=== PATIENT | female | born 1955 | race Caucasian/White ===

== ENCOUNTER 2017-09-30 19:55 | Inpatient (IN) ==
[2017-09-30] MEDS ORDERED: methylPREDNISolone 125 MG/2 ML VIAL IVP ONE (19:56)
[2017-09-30] MEDS ORDERED: Ipratropium/Albuterol Neb 3 ML IH ONE (19:56)
[2017-09-30] MEDS ORDERED: Levofloxacin 750 MG/150 ML 750 MG/150 ML BAG IVPB ONE (19:57)
[2017-09-30] MEDS ORDERED: Ipratropium/Albuterol Neb 3 ML ONE (19:58)
--- NOTE | 2017-09-30 20:01 | Emergency Department Note ---
Disposition Clinical Impression: COPD (chronic obstructive pulmonary disease) with acute bronchitis Disposition: Admitted As Inpatient Condition: Fair General Adult HPI - General Stated complaint: SOB Time Seen by Provider: 09/30/17 19:55 Nursing Notes Reviewed: Yes Vital Signs Reviewed: Yes - History of Present Illness HPI Narrative: 62-year-old female presents emergency department with concern for shortness of breath. Patient has past medical history of COPD. She reports that she has had a cold over the last week consisting of upper respiratory symptoms. Patient was going to visit her primary care provider, but was dealing with her who was in the hospital. Patient stating that she is having difficulty breathing. Is not reporting any pain anywhere. - Related Data Home Medications Medication Instructions Recorded Confirmed Albuterol Neb [Proventil Neb] 2.5 mg IH DAILY PRN 09/30/17 09/30/17 Albuterol Sulfate [Ventolin Hfa] 1 puff IH DAILY PRN 09/30/17 09/30/17 Atenolol 100 mg PO DAILY 09/30/17 09/30/17 Montelukast [Singulair] 10 mg PO DAILY 09/30/17 09/30/17 Symbicort 2 puff IH BID 09/30/17 09/30/17 Allergies Allergy/AdvReac Type Severity Reaction Status Date / Time No Known Allergies Allergy Verified 09/30/17 20:07 All systems ED: reviewed and negative except as stated. Review of Systems: As Per HPI Constitutional: Denies: fever Cardiovascular: Denies: chest pain Respiratory: Reports: dyspnea. Denies: cough Gastrointestinal: Denies: abdominal pain, nausea, vomiting Physical Exam - Head Head exam: normocephalic - Eye Eye exam: Present: EOMI - ENT ENT exam: normal oropharynx - Neck Neck exam: Present: trachea midline - Chest Chest inspection: Present: symmetric chest wall rise - Respiratory Respiratory exam: Present: respiratory distress, wheezes, accessory muscle use, other (Decreased aeration throughout) - Cardiovascular Cardiovascular exam: Present: normal rhythm, tachycardia, normal heart sounds - Abdominal Exam Abdominal exam: Present: soft, Non-Tender. Absent: distention - Extremities Exam Extremities exam: Present: normal capillary refill - Back Exam Back exam: Present: full ROM - Neurological Exam Neurological exam: Present: alert, oriented X3 - Psychiatric Psychiatric exam: Present: anxious - Skin Skin exam: Present: warm, dry, intact. Absent: rash Course Vital Signs Temperature 0 F L 09/30/17 20:02 Pulse Rate 105 09/30/17 20:02 Respiratory Rate 24 09/30/17 20:02 Blood Pressure 200/120 09/30/17 20:02 O2 Sat by Pulse Oximetry 99 09/30/17 20:02 Temperature 0 F L 09/30/17 20:02 Pulse Rate 120 09/30/17 20:19 Respiratory Rate 40 09/30/17 20:19 Blood Pressure 155/90 09/30/17 20:19 O2 Sat by Pulse Oximetry 98 09/30/17 20:19 Oxygen Delivery Oxygen Delivery Bipap Medical Decision Making - MDM Narrative Medical decision making narrative: 62-year-old female presented to emergency department with concern for shortness of breath with known history of COPD. Patient arrived to the emergency department hypoxic, tachypnea, tachycardic, with decreased lung sounds throughout with his returning for wheezes. She appeared to be in moderate respiratory distress. 3 DuoNeb's were mainly initiating, patient was placed on BiPAP, on BiPAP, patient appeared to become a little more comfortable. Patient also given 125 mg Solu-Medrol. She will get a dose of Levaquin here. EKG does not reveal any ischemic ST changes. Patient has mild leukocytosis of 14.9. Chest x-ray does not reveal any evidence of pneumonia or any other acute cardiopulmonary disease. Troponin is within normal limits. BNP 77, do not appreciate any rales or pitting edema to suggest CHF. The initial VBG revealed a pH of 7.32 with a PCO2 of 60 may reveal mild signs of respiratory acidosis. Clinically, patient does not need a repeat as she appears much improved after menstruation BiPAP. Patient had d-dimer of 533. This is below age-adjusted level which was likely rules out pulmonary embolus. Prior to admission, the patient is alert and oriented, appears to be breathing more comfortably on the BiPAP. I spoke to the admitting hospitalist agreed to accept this patient for COPD exacerbation. Vital Signs Temperature 0 F L 09/30/17 20:02 Pulse Rate 105 09/30/17 20:02 Respiratory Rate 24 09/30/17 20:02 Blood Pressure 200/120 09/30/17 20:02 O2 Sat by Pulse Oximetry 99 09/30/17 20:02 Temperature 0 F L 09/30/17 20:02 Pulse Rate 120 09/30/17 20:19 Respiratory Rate 40 09/30/17 20:19 Blood Pressure 155/90 09/30/17 20:19 O2 Sat by Pulse Oximetry 98 09/30/17 20:19 Oxygen Delivery Oxygen Delivery Bipap Chest X-Ray 09/30/17 19:56 IMPRESSION: No acute cardiopulmonary disease. D/ / Jordy Salinas MD / Jordy Salinas MD Interpreting Provider: Jordy Salinas MD - Lab Data Result diagrams: 09/30/17 19:59 09/30/17 21:07 Lab Results 09/30/17 09/30/17 09/30/17 Range/Units 19:55 19:59 19:59 WBC 14.9 H (4.3-11.1) K/mcL RBC 5.32 H (3.82-4.97) M/mcL Hgb 14.8 (11.5-15.4) g/dL Hct 47.6 H (35.3-44.9) % MCV 89.5 (83.0-100.0) fL MCH 27.8 L (28.0-33.3) pg MCHC 31.1 L (31.6-35.5) g/dL RDW 14.9 H (11.5-14.5) % Plt Count 234 (140-400) K/mcL MPV 11.1 (9.4-12.4) fL Immature Gran % 0.7 (0-4) % Seg Neutrophils % 77.3 % Lymphocytes % 11.2 % Monocytes % 9.8 % Eosinophils % 0.5 % Basophils % 0.5 % Neutrophils # 11.5 H (1.6-8.9) K/mcL Lymphocytes # 1.7 (0.6-4.6) K/mcL Monocytes # 1.5 H (0.0-1.3) K/mcL Eosinophils # 0.1 (0.0-0.6) K/mcL Basophils # 0.1 (0.0-0.2) K/mcL D-Dimer (0-500) ng/mLFEU VBG pH (7.32-7.42) pH Units VBG pCO2 (41-51) mmHg VBG pO2 (25-50) mmHg VBG HCO3 (21-27) mEq/L Sodium (136-145) mEq/L Potassium (3.5-5.1) mEq/L Chloride (98-107) mEq/L Carbon Dioxide (23-29) mEq/L BUN (8-23) mg/dL Creatinine (0.60-1.20) mg/dL Est GFR ( Amer) (> 60) Est GFR (Non-Af Amer) (> 60) BUN/Creatinine Ratio (6-26) Glucose (70-105) mg/dL Calculated Osmolality (280-300) Lactic Acid (0.5-2.2) mmol/L Calcium (8.6-10.3) mg/dL Troponin I (< 0.04) ng/mL B-Natriuretic Peptide 77 (Less than 100) pg/mL Specimen Rejected Hemolyzed 09/30/17 09/30/17 09/30/17 Range/Units 19:59 20:22 20:25 WBC (4.3-11.1) K/mcL RBC (3.82-4.97) M/mcL Hgb (11.5-15.4) g/dL Hct (35.3-44.9) % MCV (83.0-100.0) fL MCH (28.0-33.3) pg MCHC (31.6-35.5) g/dL RDW (11.5-14.5) % Plt Count (140-400) K/mcL MPV (9.4-12.4) fL Immature Gran % (0-4) % Seg Neutrophils % % Lymphocytes % % Monocytes % % Eosinophils % % Basophils % % Neutrophils # (1.6-8.9) K/mcL Lymphocytes # (0.6-4.6) K/mcL Monocytes # (0.0-1.3) K/mcL Eosinophils # (0.0-0.6) K/mcL Basophils # (0.0-0.2) K/mcL D-Dimer 531 H (0-500) ng/mLFEU VBG pH 7.32 (7.32-7.42) pH Units VBG pCO2 62 H (41-51) mmHg VBG pO2 100 H (25-50) mmHg VBG HCO3 32 H (21-27) mEq/L Sodium (136-145) mEq/L Potassium (3.5-5.1) mEq/L Chloride (98-107) mEq/L Carbon Dioxide (23-29) mEq/L BUN (8-23) mg/dL Creatinine (0.60-1.20) mg/dL Est GFR ( Amer) (> 60) Est GFR (Non-Af Amer) (> 60) BUN/Creatinine Ratio (6-26) Glucose (70-105) mg/dL Calculated Osmolality (280-300) Lactic Acid 1.3 (0.5-2.2) mmol/L Calcium (8.6-10.3) mg/dL Troponin I (< 0.04) ng/mL B-Natriuretic Peptide (Less than 100) pg/mL Specimen Rejected 09/30/17 09/30/17 Range/Units 20:52 21:07 WBC (4.3-11.1) K/mcL RBC (3.82-4.97) M/mcL Hgb (11.5-15.4) g/dL Hct (35.3-44.9) % MCV (83.0-100.0) fL MCH (28.0-33.3) pg MCHC (31.6-35.5) g/dL RDW (11.5-14.5) % Plt Count (140-400) K/mcL MPV (9.4-12.4) fL Immature Gran % (0-4) % Seg Neutrophils % % Lymphocytes % % Monocytes % % Eosinophils % % Basophils % % Neutrophils # (1.6-8.9) K/mcL Lymphocytes # (0.6-4.6) K/mcL Monocytes # (0.0-1.3) K/mcL Eosinophils # (0.0-0.6) K/mcL Basophils # (0.0-0.2) K/mcL D-Dimer (0-500) ng/mLFEU VBG pH (7.32-7.42) pH Units VBG pCO2 (41-51) mmHg VBG pO2 (25-50) mmHg VBG HCO3 (21-27) mEq/L Sodium 133 L (136-145) mEq/L Potassium 3.9 (3.5-5.1) mEq/L Chloride 102 (98-107) mEq/L Carbon Dioxide 27 (23-29) mEq/L BUN 11 (8-23) mg/dL Creatinine 0.82 (0.60-1.20) mg/dL Est GFR ( Amer) > 60 (> 60) Est GFR (Non-Af Amer) > 60 (> 60) BUN/Creatinine Ratio 13 (6-26) Glucose 165 H (70-105) mg/dL Calculated Osmolality 279 L (280-300) Lactic Acid (0.5-2.2) mmol/L Calcium 9.3 (8.6-10.3) mg/dL Troponin I 0.03 (< 0.04) ng/mL B-Natriuretic Peptide (Less than 100) pg/mL Specimen Rejected Hemolyzed - EKG Data EKG #1 EKG attestation: Yes I reviewed and interpreted this EKG. EKG results narrative: 20:11 Ventricular rate 100 bpm, MN interval 159 ms, QRS duration 92 ms, QT 339 ms, QTC 396 months seconds, normal axis. Sinus tachycardia with a ventricular rate of 100 bpm. No evidence of any ischemic ST changes. No EKG to compare this study to.
[2017-09-30] MEDS ORDERED: *HR* Midazolam HCl 2 MG/2 ML VIAL IVP ONE (20:07)
--- NOTE | 2017-09-30 20:10 | Emergency Department Note ---
Disposition Clinical Impression: COPD (chronic obstructive pulmonary disease) with acute bronchitis Disposition: Admitted As Inpatient General Adult HPI - General Stated complaint: SOB Time Seen by Provider: 09/30/17 19:55 - Related Data Allergies Allergy/AdvReac Type Severity Reaction Status Date / Time No Known Allergies Allergy Verified 09/30/17 20:07 Course - Reevaluation(s) Reevaluation #1: ATTESTATION NOTE I examined this patient and my medical decision-making was reviewed with the Resident Physician, Glen Sosa. I agree with the documented findings, disposition and treatment plan as described except to the extent set forth below. I have personally performed a face to face evaluation on this patient. I have reviewed and agree with the care plan. Briefly: A 62-year-old obese female brought in by wheelchair she was visiting her who is inpatient at [facility], for COPD flare shortness breath. Patient is not on home oxygen. She is on 1 prior admission for COPD flare. She comes in slightly hypoxic tachypnea slightly agitated but not diaphoretic. She was placed immediately on emergent BiPAP satting at 98% she is beginning to relax a little bit patient in EKG screening labs and chest x -ray. Patient will get IV steroids. Patient will likely be admitted. Disposition pending. Providing 45 minutes critical care service this patient. Time: 20:08
[2017-09-30 20:15] LABS: Basophils # 0.1 K/mcL (0.0-0.2); Basophils % 0.5 %; Eosinophils # 0.1 K/mcL (0.0-0.6); Eosinophils % 0.5 %; Hematocrit 47.6 % (35.3-44.9); Hemoglobin 14.8 g/dL (11.5-15.4); Immature Granulocytes % 0.7 % (0-4); Lymphocytes # 1.7 K/mcL (0.6-4.6); Lymphocytes % 11.2 %; Mean Corpuscular HGB Conc 31.1 g/dL (31.6-35.5); Mean Corpuscular Hemoglobin 27.8 pg (28.0-33.3); Mean Corpuscular Volume 89.5 fL (83.0-100.0); Mean Platelet Volume 11.1 fL (9.4-12.4); Monocytes # 1.5 K/mcL (0.0-1.3); Monocytes % 9.8 %; Neutrophils # 11.5 K/mcL (1.6-8.9); Platelet Count 234 K/mcL (140-400); Red Blood Count 5.32 M/mcL (3.82-4.97); Red Cell Distribution Width 14.9 % (11.5-14.5); Segmented Neutrophils % 77.3 %
[2017-09-30 20:29] LABS: VBG HCO3 32 mEq/L (21-27); VBG PCO2 62 mmHg (41-51); VBG PH 7.32 pH Units (7.32-7.42); VBG PO2 100 mmHg (25-50)
[2017-09-30 21:38] LABS: BUN/Creatinine Ratio 13 (6-26); Blood Urea Nitrogen 11 mg/dL (8-23); Calcium 9.3 mg/dL (8.6-10.3); Carbon Dioxide 27 mEq/L (23-29); Chloride 102 mEq/L (98-107); Glucose 165 mg/dL (70-105); Osmolality,Calculated 279 (280-300); Potassium 3.9 mEq/L (3.5-5.1); Sodium 133 mEq/L (136-145); Troponin I 0.03 ng/mL (< 0.04); eGFR For Non-African Americans > 60 (> 60)
[2017-09-30] MEDS ORDERED: Albuterol 2.5 MG/3 ML NEBULIZER IH PRN (22:59)
[2017-10-01] MEDS: Ipratropium/Albuterol Neb 3 ML IH SCH ×5 (00:11→22:13)
[2017-10-01] MEDS: Acetylcysteine 10% 2 ML INHSOL IH SCH ×5 (00:12→22:13)
[2017-10-01] MEDS ORDERED: SYMBICORT IH SCH (00:15)
[2017-10-01] MEDS ORDERED: Naloxone 0.4 MG/ML INJ IVP PRN (00:27)
[2017-10-01] MEDS: Loratadine 10 MG TABLET PO SCH ×2 (00:29→09:00)
--- NOTE | 2017-10-01 01:08 | Internal Med History&Physical ---
Date of Encounter: 09/30/17 Time of Encounter: 22:47 Internal Medicine - H&P: HPI Chief complaint: "Shortness of breath" Admitted From: Emergency Dept Plans for Post Hospital Care: Home History of present illness: Ms. Khan is a 62 year old female with PMH of COPD who presented to ED today with shortness of breath. She states that she started having upper respiratory infection symptoms about 1 week ago. She has also had worsening dyspnea over this time. She is not on supplemental oxygen at home. She has been using increased number of nebulizer treatments without much improvement. She has non- productive cough. She denies fever, chills, chest pain, nausea, vomiting, abdominal pain, changes in bladder, or changes in bowels. In the ED, labwork was significant for leukocytosis to 14.9. CXR showed no acute cardiopulmonary process. She was given IV solumedrol, IV levaquin, duoneb, and placed on BiPAP. At this time, she states that her SOB is improved. She has no other complaints at this time. Past Med Surg Social Fam HX - Past Medical History Attestation: Yes The following information was validated with the patient. Source: patient Medical history: COPD, hypertension Psychiatric history: no psych history - Past Surgical History Additional surgical history: foot surgery with pins - Social History Smoking Status: Former smoker Smokeless Tobacco Status: No Alcohol use: none Drug use: none - Additional Family History Additional family history: No significant family history per patient. Internal Medicine - H&P: Meds Albuterol Neb [Proventil Neb] 2.5 mg IH DAILY PRN 09/30/17 [History] Albuterol Sulfate [Ventolin Hfa] 1 puff IH DAILY PRN 09/30/17 [History] Atenolol 100 mg PO DAILY 09/30/17 [History] Montelukast [Singulair] 10 mg PO DAILY 09/30/17 [History] Symbicort 2 puff IH BID 09/30/17 [History] 3 Allergy/AdvReac Type Severity Reaction Status Date / Time No Known Allergies Allergy Verified 09/30/17 20:07 All Systems PM: A 10-system review of systems was performed and is negative for pertinent findings except as documented above in the HPI. - Constitutional Vitals: Temp Pulse Resp BP Pulse Ox 99.5 F 88 24 182/85 92 09/30/17 23:08 09/30/17 23:08 10/01/17 00:15 09/30/17 23:08 10/01/17 00:15 General appearance: Present: cooperative, mild distress (Respiratory distress), A&O X 3, pleasant, obese, answers questions appropriately - Head Head exam: Present: atraumatic, normocephalic - Eye Eye exam: Present: EOMI, PERRL. Absent: conjunctival injection, nystagmus, scleral icterus - ENT ENT exam: Present: mucous membranes moist, normal external ear exam, normal oropharynx - Neck Neck exam general surgery: Present: supple, trachea midline. Absent: lymphadenopathy, tenderness, thyromegaly - Respiratory Respiratory exam: Absent: accessory muscle use, rales, rhonchi, wheezes Additional comments: Mildly labored WOB, coarse breath sounds bilaterally - Cardiovascular Cardiovascular exam: Present: RRR, +S1, +S2. Absent: diastolic murmur, gallop, rubs, systolic murmur Additional comments: No BLE edema - GI/Abdominal GI/Abdominal exam: Present: normal bowel sounds, soft. Absent: distended, hepatomegaly, mass, splenomegaly, tenderness - Neurological Exam Neurological exam: Present: alert, CN II-XII intact, oriented X3, no focal deficits, strengths equal and symetr throughout. Absent: motor sensory deficit , facial droop, speech deficit - Psychiatric Psychiatric exam: Present: normal affect, normal mood. Absent: agitated, anxious, depressed - Skin Skin exam: Present: dry, intact, warm. Absent: cyanosis, erythema, rash Internal Med - H&P Results - Labs CBC & Chem 7: 09/30/17 19:59 09/30/17 21:07 - Assessment and plan (1) Acute exacerbation of chronic obstructive pulmonary disease (COPD) Current Visit: Yes Status: Acute Assessment and plan: Admit as inpatient with telemetry. Will wean off BiPAP and place on PRN supplemental oxygen; wean as tolerated to room air. Start duonebs scheduled Q6H and albuterol nebs Q4H PRN SOB/wheezing. Start mucomyst inhaled and chest PT Q6H with nebulizer treatments. Continue solumedrol 80 mg IV Q8H; wean with improvement. Start incentive spirometry, turn/cough/deep breathe, and up to chair TID with assistance. Start guaifenesin and claritin. Continue levaquin 750 mg IV QD. Monitor vitals closely. Repeat labwork in AM. (2) Acute bronchitis Current Visit: Yes Status: Acute Assessment and plan: Continue IV levaquin as per above. Start guaifenesin and claritin as per above. Respiratory support as per above. Qualifiers: Bronchitis organism: other organism Qualified Code(s): J20.8 - Acute bronchitis due to other specified organisms (3) Hypertension Current Visit: Yes Status: Acute Assessment and plan: Continue home medications. Qualifiers: Hypertension type: essential hypertension Qualified Code(s): I10 - Essential (primary) hypertension (4) DVT prophylaxis Current Visit: Yes Status: Acute Assessment and plan: Start SCDs and lovenox 40 mg SQ QD. - Time Spent With Patient Total time spent is greater than 50% in coordination of care (as documented) at patient's floor/unit and/or counseling patient: less than 15 minutes
[2017-10-01] MEDS: *HR* Enoxaparin 40 MG/0.4 ML SYRINGE SQ SCH (05:31)
[2017-10-01] MEDS: methylPREDNISolone 125 MG/2 ML VIAL IVP SCH ×3 (05:32→21:25)
[2017-10-01 06:17] LABS: Basophils % 0.2 %; Hematocrit 45.6 % (35.3-44.9); Hemoglobin 14.1 g/dL (11.5-15.4); Immature Granulocytes % 0.4 % (0-4); Lymphocytes # 0.5 K/mcL (0.6-4.6); Lymphocytes % 4.1 %; Mean Corpuscular HGB Conc 30.9 g/dL (31.6-35.5); Mean Corpuscular Hemoglobin 27.5 pg (28.0-33.3); Mean Corpuscular Volume 89.1 fL (83.0-100.0); Mean Platelet Volume 11.5 fL (9.4-12.4); Monocytes # 0.1 K/mcL (0.0-1.3); Monocytes % 1.2 %; Neutrophils # 11.3 K/mcL (1.6-8.9); Platelet Count 246 K/mcL (140-400); Red Blood Count 5.12 M/mcL (3.82-4.97); Red Cell Distribution Width 14.8 % (11.5-14.5); Segmented Neutrophils % 94.1 %
[2017-10-01 06:34] LABS: BUN/Creatinine Ratio 15 (6-26); Blood Urea Nitrogen 12 mg/dL (8-23); Calcium 9.8 mg/dL (8.6-10.3); Carbon Dioxide 29 mEq/L (23-29); Chloride 99 mEq/L (98-107); Glucose 153 mg/dL (70-105); Osmolality,Calculated 287 (280-300); Potassium 4.5 mEq/L (3.5-5.1); Sodium 137 mEq/L (136-145); eGFR For Non-African Americans > 60 (> 60)
[2017-10-01] MEDS: Acetaminophen 325 MG TABLET PO PRN ×3 (09:00→21:25)
[2017-10-01] MEDS ORDERED: Isovue-370 500 ML INFUS..BTL IV ONE ×2 (10:00→10:57)
--- NOTE | 2017-10-01 10:04 | Internal Med Progress Note ---
Date of Encounter: 10/01/17 Time of Encounter: 09:58 - Assessment and plan (1) Acute exacerbation of chronic obstructive pulmonary disease (COPD) Current Visit: Yes Status: Acute Assessment and plan: History of COPD but has been well controlled on Symbicort breathing treatment. Last admission in the hospital in 2016. Patient does not see pulmonologists. She is not on any home oxygen. She had URI like symptoms last week that got better but is started shortness of breath. Dimness breath sound is still oxygen dependent. Will try to wean down BiPAP and repeat ABC. Oxygen supplementation with continuation of IV Solu-Medrol, DuoNeb, chest PT, incentive spirometry. Continue Levaquin 750 mg daily. (2) D-dimer, elevated Current Visit: Yes Status: Acute Assessment and plan: Patient has significant short of breath and raised d-dimer therefore CT PE ordered to rule out underlying PE. Doppler venous ultrasound also ordered. (3) Acute bronchitis Current Visit: Yes Status: Acute Assessment and plan: Continue IV levaquin as per above. Continue guaifenesin and claritin . Qualifiers: Bronchitis organism: other organism Qualified Code(s): J20.8 - Acute bronchitis due to other specified organisms (4) Hypertension Current Visit: Yes Status: Acute Assessment and plan: Continue home medications. Close monitoring Qualifiers: Hypertension type: essential hypertension Qualified Code(s): I10 - Essential (primary) hypertension (5) DVT prophylaxis Current Visit: Yes Status: Acute Assessment and plan: Start SCDs and lovenox 40 mg SQ QD. - Time Spent With Patient Total time spent is greater than 50% in coordination of care (as documented) at patient's floor/unit and/or counseling patient: 25 - 35 minutes - Subjective Interval history: Better short of breath. Patient is sitting on the, ordered on nasal cannula oxygen. Get short of breath at the end of sentence. Vitals are stable. Review the lab with trending down white count. Raised d-dimer. Patient denies fever, chills, nausea, vomiting, headache, dizziness, chest pain , abdominal pain, urinary or bowel complaint. She complained of somewhat leg pain but unable to describe. - Constitutional Vitals: Temp Pulse Resp BP Pulse Ox 98.8 F 75 19 154/83 90 10/01/17 08:12 10/01/17 08:12 10/01/17 08:12 10/01/17 08:12 10/01/17 08:12 General appearance: Present: cooperative, mild distress, A&O X 3, pleasant Exam: General appearance: Sitting on the bedside commode. 4 L oxygen by nasal cannula. Get out of breath at the end of sentence otherwise no acute distress. A&O X 3 Head exam: Atraumatic Eye exam: EOMI, PERRLA ENT exam: Moist oral mucosa Neck nontender, supple Respiratory exam: Diminished breath sound to auscultation bilaterally Cardiovascular exam: Regular rate and rhythm, no systolic murmur Abdominal exam: Soft, nontender, nondistended, positive bowel sounds Extremities exam: No calf tenderness, no pedal edema Present: equivocal Homans sign Skin- warm, dry, intact Neurological exam: Alert, awake, oriented 3, CN II-XII intact, no focal deficits. No facial droop. Normal speech. Normal gait. Internal Medicine: Result - Labs CBC & Chem 7: 10/01/17 05:47 10/01/17 05:47 Labs: Short CBC 10/01/17 Range/Units 05:47 WBC 12.0 H (4.3-11.1) K/mcL Hgb 14.1 (11.5-15.4) g/dL Hct 45.6 H (35.3-44.9) % Plt Count 246 (140-400) K/mcL Neutrophils # 11.3 H (1.6-8.9) K/mcL BMP 10/01/17 05:47 Sodium 137 Potassium 4.5 Chloride 99 Carbon Dioxide 29 BUN 12 Creatinine 0.78 Glucose 153 H Calcium 9.8 - ABG Interpretation ABG results: PT/INR, D-dimer D-Dimer 531 ng/mLFEU (0-500) H 09/30/17 19:59 Consult Discharge Plan - Plan
[2017-10-01] MEDS: Budesonide/Formoterol 80/4.5 MDI IH SCH ×2 (15:39→22:16)
[2017-10-01] MEDS: Levofloxacin 750 MG/150 ML 750 MG/150 ML BAG IVPB SCH (21:26)
[2017-10-02] MEDS: Ipratropium/Albuterol Neb 3 ML IH SCH ×4 (04:28→21:18)
[2017-10-02] MEDS: Acetylcysteine 10% 2 ML INHSOL IH SCH ×4 (04:28→21:19)
[2017-10-02] MEDS: methylPREDNISolone 125 MG/2 ML VIAL IVP SCH ×3 (06:59→23:12)
[2017-10-02] MEDS: *HR* Enoxaparin 40 MG/0.4 ML SYRINGE SQ SCH (07:00)
[2017-10-02] MEDS: Loratadine 10 MG TABLET PO SCH (08:49)
[2017-10-02] MEDS: Budesonide/Formoterol 80/4.5 MDI IH SCH ×2 (11:06→21:20)
--- NOTE | 2017-10-02 11:39 | Pulmonology Consult Note ---
Date of Encounter: 10/02/17 Time of Encounter: 11:38 Assessment and Plan (1) Acute respiratory failure with hypoxia Current Visit: Yes Status: Acute Secondary to COPD exacerbation complicated by morbid obesity so essentially mixed obstructive and restrictive physiology Currently saturating well on 4 L nasal cannula which I suspect be weaned down (2) Acute bronchitis Current Visit: Yes Status: Acute Sputum culture pending Without evidence of pneumonia recommend transitioning to azithromycin to complete 5 day course this will also be more cost effective for the patient Send respiratory infectious panel for PCR analysis Qualifiers: Bronchitis organism: other organism Qualified Code(s): J20.8 - Acute bronchitis due to other specified organisms (3) Acute exacerbation of chronic obstructive pulmonary disease (COPD) Current Visit: Yes Status: Acute IV steroids today can likely be decreased to 40 mg every 8 hours. Can likely transition to oral glucocorticoids within the next 24 hours recommend two-week taper Still with diminished airflow bilaterally will need a increased bronchodilator regimen recommend DuoNeb scheduled every 6 hours with every one hour albuterol as needed I have increase the frequency of home Symbicort She will need outpatient follow-up pulmonary once she can establish insurance I believe that her symptoms are in proportion to underlying COPD with acute exacerbation (4) Morbid obesity Current Visit: Yes Status: Acute Weight loss encouraged ideally patient could have a sleep study as outpatient as I have a high pretest probability of obstructive sleep apnea (5) DVT prophylaxis Current Visit: Yes Status: Acute Agree with chemical DVT prophylaxis while inpatient was contraindication arises (6) Poverty Current Visit: Yes Status: Acute Patient has expressed financial hardships and is hardly uninsured I would recommend evaluation with social worker health services to establish options for insurance or payment for outpatient care Thank you for this consultation please call with questions History of Present Illness Consult date: 10/02/17 Requesting physician: Mary Jane Reason for consult: COPD, hypoxemia Chief complaint: Difficulty in breathing. History of present illness: This is a very pleasant 62-year-old with a past medical history of COPD. She is not oxygen dependent at baseline. She states that symptoms began approximately 4 days ago with upper respiratory tract infection including sneezing increased cough she denies any fevers chills. No sick contacts recently. This progressed to worsening shortness of breath to the point that she could not catch her breath and frequent coughing paroxysmal's. Presented to the ED was noted to be hypoxic but improved with the nasal cannula oxygen. She has been treated with the proper dilators antibiotics and steroids however patient has had persistent shortness of breath today in fact when she was up ambulating she had an episode of significant shortness of breath which required BiPAP to help with work of breathing. When I spoke with her she was quite comfortable on nasal cannula speaking in full sentences without distress. She is a former smoker smoked from the age of 17 to about 9 years ago. No industrial/environmental exposures no exotic pets at home She denies fevers chills weight loss hemoptysis night sweats nausea vomiting or diarrhea Workup for ischemic cardiac cause was negative BNP was within normal limits CTA was performed which was negative for filling defect or pneumonia Of note patient is currently uninsured and has extreme financial difficulties making consistent outpatient follow-up difficult Past Med Surg Social Fam HX - Past Medical History Medical history: COPD, hypertension Psychiatric history: no psych history - Past Surgical History Additional surgical history: foot surgery with pins - Social History Smoking Status: Former smoker Smokeless Tobacco Status: No Alcohol use: none Drug use: none Medications and Allergies Albuterol Neb [Proventil Neb] 2.5 mg IH DAILY PRN 09/30/17 [History] Albuterol Sulfate [Ventolin Hfa] 1 puff IH DAILY PRN 09/30/17 [History] Atenolol 100 mg PO DAILY 09/30/17 [History] Montelukast [Singulair] 10 mg PO DAILY 09/30/17 [History] Symbicort 2 puff IH BID 09/30/17 [History] Dextromethorphan/Benzocaine [Cepacol Sorethroat-Cough Uma] 1 each PO Q1-4H PRN 7 Days #1 lozenge 10/01/17 [Rx] 3 Allergy/AdvReac Type Severity Reaction Status Date / Time No Known Allergies Allergy Verified 09/30/17 20:07 All Systems: The remainder of the systems were reviewed and are negative Physical Examination Vital Signs: Vital Signs, Last 4 Hours Temp Pulse Resp BP Pulse Ox 10/02/17 11:08 22 94 10/02/17 07:43 97.7 F 73 20 146/72 96 General appearance: no acute distress Eyes: nonicteric ENT: oropharynx moist Effort: normal Auscultation: bilateral: diminished breath sounds, wheezes (Inspiratory wheezes noted bilaterally with general poor air movement) Cardiovascular: regular rate and rhythm Gastrointestinal: normoactive bowel sounds, other (Obese habitus) Integumentary: normal Extremities: no cyanosis, no edema, no clubbing Musculoskeletal: no deformities normal mental status, non-focal exam mood appropriate Results - Laboratory Findings CBC and BMP: 10/01/17 05:47 10/01/17 05:47 PT/INR, D-dimer D-Dimer 531 ng/mLFEU (0-500) H 09/30/17 19:59 Abnormal lab findings: Abnormal lab results WBC 12.0 K/mcL (4.3-11.1) H 10/01/17 05:47 RBC 5.12 M/mcL (3.82-4.97) H 10/01/17 05:47 Hct 45.6 % (35.3-44.9) H 10/01/17 05:47 MCH 27.5 pg (28.0-33.3) L 10/01/17 05:47 MCHC 30.9 g/dL (31.6-35.5) L 10/01/17 05:47 RDW 14.8 % (11.5-14.5) H 10/01/17 05:47 Neutrophils # 11.3 K/mcL (1.6-8.9) H 10/01/17 05:47 Lymphocytes # 0.5 K/mcL (0.6-4.6) L 10/01/17 05:47 D-Dimer 531 ng/mLFEU (0-500) H 09/30/17 19:59 VBG pCO2 62 mmHg (41-51) H 09/30/17 20:25 VBG pO2 100 mmHg (25-50) H 09/30/17 20:25 VBG HCO3 32 mEq/L (21-27) H 09/30/17 20:25 Glucose 153 mg/dL (70-105) H 10/01/17 05:47 - Diagnostic Findings Chest x-ray: report reviewed, image reviewed CT scan - chest: report reviewed, image reviewed - Clinical Findings Intake & Output: Intake & Output 10/01/17 10/02/17 10/02/17 23:59 07:59 15:59 Intake Total 240 / 240 Balance 240 / 240 Weight 139.706 kg Consult Discharge Plan - Plan Referrals: NONE,PCP [Primary Care Provider] - Prescriptions: Dextromethorphan/Benzocaine [Cepacol Sorethroat-Cough Uma] 1 each PO Q1-4H PRN 7 Days #1 lozenge PRN Reason: Cough
--- NOTE | 2017-10-02 11:39 | Internal Med Progress Note ---
Date of Encounter: 10/02/17 Time of Encounter: 11:32 - Assessment and plan (1) Shortness of breath Current Visit: Yes Status: Acute Assessment and plan: Multifactorial. High possibility of COPD exacerbation. But her shortness of breath is out of proportion of clinical symptom. Raised d-dimer therefore CT PE ordered with no acute clot in main pulmonary vessel but cannot rule out obscured PE, a small lung nodule therefore I consulted web master. BNP and echocardiogram also ordered to rule out underlying cardiac problem. Initial troponin negative. Patient denies any chest pain. Patient declined for Doppler venous ultrasound to rule out underlying clot even after explaining. (2) Acute exacerbation of chronic obstructive pulmonary disease (COPD) Current Visit: Yes Status: Acute Assessment and plan: History of COPD but has been well controlled on Symbicort breathing treatment. Last admission in the hospital in 2016. Patient does not see pulmonologists. She is not on any home oxygen. She had URI like symptoms last week that got better but is started shortness of breath. Dimness breath sound is still oxygen dependent. Will try to wean down BiPAP and repeat ABC. Oxygen supplementation with continuation of IV Solu-Medrol, DuoNeb, chest PT, incentive spirometry. Continue Levaquin 750 mg daily. Patient will need home oxygen evaluation. Pulmonologists consulted. Will try to wean down IV steroid if clinically patient improves (3) Acute bronchitis Current Visit: Yes Status: Acute Assessment and plan: Continue IV levaquin as per above. Continue guaifenesin and claritin . Qualifiers: Bronchitis organism: other organism Qualified Code(s): J20.8 - Acute bronchitis due to other specified organisms (4) Hypertension Current Visit: Yes Status: Acute Assessment and plan: Continue home medications. Close monitoring Qualifiers: Hypertension type: essential hypertension Qualified Code(s): I10 - Essential (primary) hypertension (5) DVT prophylaxis Current Visit: Yes Status: Acute Assessment and plan: SCDs and lovenox 40 mg SQ QD. - Time Spent With Patient Total time spent is greater than 50% in coordination of care (as documented) at patient's floor/unit and/or counseling patient: 25 - 35 minutes - Subjective Interval history: Still getting out of breath especially when out of bed to the commode. Doing better at rest. She was on 4 L nasal cannula oxygen in the night but today morning .requiring BiPAP intermittent. Review of the CT PE report. Patient refused Doppler venous ultrasound test Patient denies fever, chills, nausea, vomiting, headache, dizziness, chest pain , abdominal pain, urinary or bowel complaint. - Constitutional Vitals: Temp Pulse Resp BP Pulse Ox 97.7 F 73 22 146/72 94 10/02/17 07:43 10/02/17 07:43 10/02/17 11:08 10/02/17 07:43 10/02/17 11:08 General appearance: Present: cooperative, mild distress, A&O X 3, pleasant Exam: General appearance: On BiPAP, get out of breath at the end of sentence, A&O X 3 Head exam: Atraumatic Eye exam: EOMI, PERRLA ENT exam: Moist oral mucosa Neck nontender, supple Respiratory exam: Diminished breath sound to auscultation bilaterally Cardiovascular exam: Regular rate and rhythm, no systolic murmur Abdominal exam: Soft, nontender, nondistended, positive bowel sounds Extremities exam: No calf tenderness, trace pedal edema Present: Skin- warm, dry, intact Neurological exam: Grossly CN II-XII intact, no focal deficits. No facial droop. Normal speech. Internal Medicine: Result - Labs CBC & Chem 7: 10/01/17 05:47 10/01/17 05:47 - ABG Interpretation ABG results: PT/INR, D-dimer D-Dimer 531 ng/mLFEU (0-500) H 09/30/17 19:59 - VTE Documentation of Mechanical Device: Intermittent pneumatic compression device Consult Discharge Plan - Plan Referrals: NONE,PCP [Primary Care Provider] - Prescriptions: Dextromethorphan/Benzocaine [Cepacol Sorethroat-Cough Uma] 1 each PO Q1-4H PRN 7 Days #1 lozenge PRN Reason: Cough
[2017-10-02] MEDS: Budesonide/Formoterol 160/4.5 MDI IH SCH ×2 (12:34→21:19)
[2017-10-02] MEDS: Acetaminophen 325 MG TABLET PO PRN (16:27)
[2017-10-02 17:30] LABS: Adenovirus Not Detected (Not Detect); Bordetella Pertussis Not Detected (Not Detect); Chlamydophila pneumoniae Not Detected (Not Detect); Coronavirus 229E Not Detected (Not Detect); Coronavirus HKU1 Not Detected (Not Detect); Coronavirus NL63 Not Detected (Not Detect); Coronavirus OC43 Not Detected (Not Detect); Human Metapneumovirus Not Detected (Not Detect); Human Rhinovirus/Enterovirus Not Detected (Not Detect); Influenza A Subtype 2009 H1 Not Detected (Not Detect); Influenza A Untypeable Not Detected (Not Detect); Influenza B Not Detected (Not Detect); Mycoplasma pneumoniae Not Detected (Not Detect); Parainfluenza Virus 1 Not Detected (Not Detect); Parainfluenza Virus 2 Not Detected (Not Detect); Parainfluenza Virus 3 DETECTED (Not Detect); Parainfluenza Virus 4 Not Detected (Not Detect); Respiratory Syncytial Virus Not Detected (Not Detect)
[2017-10-02] MEDS: Levofloxacin 750 MG/150 ML 750 MG/150 ML BAG IVPB SCH (23:10)
[2017-10-03] MEDS: Ipratropium/Albuterol Neb 3 ML IH SCH ×4 (03:40→22:07)
[2017-10-03] MEDS: Acetylcysteine 10% 2 ML INHSOL IH SCH ×4 (03:40→22:07)
[2017-10-03 05:04] LABS: Basophils % 0.1 %; Hematocrit 46.2 % (35.3-44.9); Hemoglobin 14.1 g/dL (11.5-15.4); Immature Granulocytes % 0.6 % (0-4); Lymphocytes # 0.6 K/mcL (0.6-4.6); Lymphocytes % 4.8 %; Mean Corpuscular HGB Conc 30.5 g/dL (31.6-35.5); Mean Corpuscular Hemoglobin 27.9 pg (28.0-33.3); Mean Corpuscular Volume 91.5 fL (83.0-100.0); Mean Platelet Volume 11.6 fL (9.4-12.4); Monocytes # 0.4 K/mcL (0.0-1.3); Monocytes % 3.3 %; Neutrophils # 10.5 K/mcL (1.6-8.9); Platelet Count 206 K/mcL (140-400); Red Blood Count 5.05 M/mcL (3.82-4.97); Red Cell Distribution Width 14.8 % (11.5-14.5); Segmented Neutrophils % 91.2 %
[2017-10-03 05:24] LABS: BUN/Creatinine Ratio 32 (6-26); Blood Urea Nitrogen 23 mg/dL (8-23); Calcium 9.3 mg/dL (8.6-10.3); Carbon Dioxide 33 mEq/L (23-29); Chloride 100 mEq/L (98-107); Glucose 200 mg/dL (70-105); Osmolality,Calculated 295 (280-300); Potassium 4.5 mEq/L (3.5-5.1); Sodium 138 mEq/L (136-145); eGFR For Non-African Americans > 60 (> 60)
[2017-10-03] MEDS: methylPREDNISolone 125 MG/2 ML VIAL IVP SCH (06:40)
[2017-10-03] MEDS: *HR* Enoxaparin 40 MG/0.4 ML SYRINGE SQ SCH (06:41)
[2017-10-03] MEDS ORDERED: Perflutren Lipid Microsphere 1.3 ML in 0.9 % Sodium Chloride 8.7 ML IVP ONE (07:38)
[2017-10-03] MEDS ORDERED: MethylPREDNISolone 40 MG/ML VIAL IVP SCH (08:00)
[2017-10-03] MEDS: Loratadine 10 MG TABLET PO SCH (08:22)
--- NOTE | 2017-10-03 09:25 | Internal Med Progress Note ---
Date of Encounter: 10/03/17 Time of Encounter: 09:23 - Assessment and plan (1) Shortness of breath Current Visit: Yes Status: Acute Assessment and plan: Multifactorial. High possibility of COPD exacerbation. Raised d-dimer therefore CT PE ordered with no acute clot in main pulmonary vessel but cannot rule out obscured PE, a small lung nodule therefore I consulted float remover who felt it is more like COPD exacerbation. BNP within normal limit. Patient declined echocardiogram test to be done. Initial troponin negative. Patient denies any chest pain. Patient declined for Doppler venous ultrasound to rule out underlying clot. (2) Acute exacerbation of chronic obstructive pulmonary disease (COPD) Current Visit: Yes Status: Acute Assessment and plan: History of COPD but has been well controlled on Symbicort breathing treatment. Last admission in the hospital in 2016. Patient does not see pulmonologists. She is not on any home oxygen. She had URI like symptoms last week that got better but is started shortness of breath. Dimness breath sound is still oxygen dependent. Consulted float remover. Weaning down steroid Solu-Medrol 40 mg every 8 hours and plan to change to oral if patient continued to improve tomorrow. Increase Symbicort this strength, continue incentive spirometry. Patient may need home oxygen evaluation before discharge. gospel worker on board to work on arranging the medication, establishing with primary care physician as patient has some financial constraints. Parainfluenza positive (3) Hypertension Current Visit: Yes Status: Acute Assessment and plan: Continue home medicine. Close monitoring of BP Qualifiers: Hypertension type: essential hypertension Qualified Code(s): I10 - Essential (primary) hypertension (4) Morbid obesity Current Visit: Yes Status: Acute Assessment and plan: Diet and exercise. Patient may get benefited with weight loss program on OPD basis with the help of PCP. (5) DVT prophylaxis Current Visit: Yes Status: Acute Assessment and plan: SCDs and Lovenox 40 mg SQ daily - Time Spent With Patient 25 - 35 minutes - Subjective Interval history: Better shortness of breath today. She is on 4 L oxygen by nasal cannula did not require BiPAP overnight. Review the float remover note. Review of the labs. Patient denies fever, chills, nausea, vomiting, headache, dizziness, chest pain , abdominal pain, urinary or bowel complaint. - Constitutional Vitals: Temp Pulse Resp BP Pulse Ox 97.9 F 75 20 174/76 91 07/30/18 08:50 10/03/17 08:50 10/03/17 08:50 10/03/17 08:50 10/03/17 08:50 General appearance: Present: cooperative, A&O X 3, pleasant Exam: General appearance: No acute distress, A&O X 3. 4 L oxygen by nasal cannula. Family at bedside Head exam: Atraumatic Eye exam: EOMI, PERRLA ENT exam: Moist oral mucosa Neck nontender, supple Respiratory exam: Diminished breath sound to auscultation bilaterally but better air entry and no wheezing, no crepitations Cardiovascular exam: Regular rate and rhythm, no systolic murmur Abdominal exam: Soft, nontender, nondistended, positive bowel sounds Extremities exam: No calf tenderness, no pedal edema Present: Skin-no rash, warm, dry, intact Neurological exam: Grossly CN II-XII intact, no focal deficits. No facial droop. Normal speech. Normal gait. Internal Medicine: Result - Labs CBC & Chem 7: 10/03/17 04:13 10/03/17 04:13 Labs: Short CBC 10/03/17 Range/Units 04:13 WBC 11.5 H (4.3-11.1) K/mcL Hgb 14.1 (11.5-15.4) g/dL Hct 46.2 H (35.3-44.9) % Plt Count 206 (140-400) K/mcL Neutrophils # 10.5 H (1.6-8.9) K/mcL BMP 10/03/17 04:13 Sodium 138 Potassium 4.5 Chloride 100 Carbon Dioxide 33 H BUN 23 Creatinine 0.73 Glucose 200 H Calcium 9.3 - ABG Interpretation ABG results: PT/INR, D-dimer D-Dimer 531 ng/mLFEU (0-500) H 09/30/17 19:59 - VTE Documentation of Mechanical Device: Intermittent pneumatic compression device Consult Discharge Plan - Plan Referrals: NONE,PCP [Primary Care Provider] - Prescriptions: Dextromethorphan/Benzocaine [Cepacol Sorethroat-Cough Uma] 1 each PO Q1-4H PRN 7 Days #1 lozenge PRN Reason: Cough
[2017-10-03] MEDS: Budesonide/Formoterol 160/4.5 MDI IH SCH ×2 (10:53→22:06)
[2017-10-03] MEDS ORDERED: D5% in Water 1,000 ML IVC PRN (12:07)
[2017-10-03] MEDS ORDERED: Dextrose Gel 15 GM/37.5 ML TUBE PO PRN ×2 (12:07)
[2017-10-03] MEDS ORDERED: *HR* Dextrose 50 % in Water (Syg) 50 ML SYRINGE IVP PRN (12:07)
[2017-10-03 12:43] LABS: Estimated Average Glucose 134 mg/dl; Hemoglobin A1C 6.3 %
[2017-10-03] MEDS: Insulin LISPRO 300 UNITS/3 ML VIAL SQ SCH ×3 (16:26→21:21)
[2017-10-03] MEDS: MethylPREDNISolone 40 MG/ML VIAL IVP SCH (16:29)
[2017-10-03] MEDS: Azithromycin 250 MG TABLET PO SCH (16:29)
--- NOTE | 2017-10-03 17:52 | Electrocardiograph Report ---
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
[2017-10-03] MEDS ORDERED: levoFLOXacin 750 MG TABLET PO SCH (21:00)
[2017-10-03] MEDS: Acetaminophen 325 MG TABLET PO PRN (21:32)
[2017-10-04] MEDS: MethylPREDNISolone 40 MG/ML VIAL IVP SCH ×3 (01:35→17:36)
[2017-10-04] MEDS: Ipratropium/Albuterol Neb 3 ML IH SCH ×4 (04:02→21:43)
[2017-10-04] MEDS: Acetylcysteine 10% 2 ML INHSOL IH SCH ×4 (04:03→21:43)
[2017-10-04] MEDS: *HR* Enoxaparin 40 MG/0.4 ML SYRINGE SQ SCH (06:18)
[2017-10-04] MEDS: Insulin LISPRO 300 UNITS/3 ML VIAL SQ SCH ×4 (07:52→20:21)
[2017-10-04] MEDS: Loratadine 10 MG TABLET PO SCH (08:28)
--- NOTE | 2017-10-04 09:49 | Internal Med Progress Note ---
Hospitalist Progress Note - Encounter Date of Encounter: 10/04/17 Time of Encounter: 09:46 - Subjective Interval History: Better shortness of breath today on rest but is still get out of breath on ambulation even for a few steps. She is on 3 L oxygen by nasal cannula at rest and did not require BiPAP for last 48 hours. still waiting to be seen by social economist to make discharge plan Patient denies fever, chills, nausea, vomiting, headache, dizziness, chest pain , abdominal pain, urinary or bowel complaint. - Exam Vitals: Temp Pulse Resp BP Pulse Ox 98.2 F 66 18 124/63 95 10/04/17 07:28 10/04/17 07:28 10/04/17 07:28 10/04/17 07:28 10/04/17 07:28 Exam: General appearance: No acute distress, A&O X 3, family at bedside, oxygen by nasal cannula 3 L Head exam: Atraumatic Eye exam: EOMI, PERRLA ENT exam: Moist oral mucosa Neck nontender, supple Respiratory exam: Diminished breath sounds bilaterally but better air entry with few rhonchi's Cardiovascular exam: Regular rate and rhythm, no systolic murmur Abdominal exam: Soft, nontender, nondistended, positive bowel sounds Extremities exam: No calf tenderness, no pedal edema Present: Skin-no rash, warm, dry, intact Neurological exam: Alert, awake, oriented 3, CN II- intact, no focal deficits. No facial droop. Normal speech. Normal gait. - Assessment and Plan (1) Shortness of breath Current Visit: Yes Status: Acute Assessment and Plan: Multifactorial. High possibility of COPD exacerbation. Raised d-dimer therefore CT PE ordered with no acute clot in main pulmonary vessel but cannot rule out obscured PE, a small lung nodule therefore I consulted bowling floor desk clerk and he felt that is more like due to COPD.. BNP normal. Patient declined for echocardiogram. (2) Acute exacerbation of chronic obstructive pulmonary disease (COPD) Current Visit: Yes Status: Acute Assessment and Plan: History of COPD but has been well controlled on Symbicort breathing treatment. Last admission in the hospital in 2016. Patient does not see pulmonologists. She is not on any home oxygen. paraInfluenzae positive on respiratory panel. Respiratory isolation. Better air entry. Wean down oxygen 3 L via nasal cannula. Patient need home oxygen evaluation at the time of discharge. Decreased his steroid 40 mg IV twice a day. Continue DuoNeb, chest physiotherapy, incentive spirometry, Symbicort increased dose. Azithromycin is started. cleaner touch up worker is still awaited to be seen to make discharge plan. Pulmonologists on board. Patient may need sleep study on OPD basis. Plan to discharge in 1-2 days (3) Hypertension Current Visit: Yes Status: Acute Assessment and Plan: Continue home medications. Close monitoring (4) Morbid obesity Current Visit: Yes Status: Acute Assessment and Plan: Low-calorie diet and exercise. Patient needs to get established with PCP/ weight loss clinic (5) DVT prophylaxis Current Visit: Yes Status: Acute Assessment and Plan: SCDs and lovenox 40 mg SQ QD. - Time Spent with Patient Total time spent is greater than 50% in coordination of care (as documented) at patient's floor/unit and/or counseling patient: 25 - 35 minutes Plan of Care Discussed with: patient Internal Medicine: Result - Labs CBC & Chem 7: 10/03/17 04:13 10/03/17 04:13 - ABG Interpretation ABG results: PT/INR, D-dimer D-Dimer 531 ng/mLFEU (0-500) H 09/30/17 19:59 - VTE Documentation of Mechanical Device: Intermittent pneumatic compression device Consult Discharge Plan - Plan Referrals: NONE,PCP [Primary Care Provider] - Prescriptions: Dextromethorphan/Benzocaine [Cepacol Sorethroat-Cough Uma] 1 each PO Q1-4H PRN 7 Days #1 lozenge PRN Reason: Cough (3) Hypertension Qualifiers: Hypertension type: essential hypertension Qualified Code(s): I10 - Essential (primary) hypertension
[2017-10-04] MEDS: Budesonide/Formoterol 160/4.5 MDI IH SCH ×2 (10:42→21:43)
[2017-10-04] MEDS: Acetaminophen 325 MG TABLET PO PRN (11:48)
[2017-10-04] MEDS: Azithromycin 250 MG TABLET PO SCH (17:35)
[2017-10-05] MEDS: Acetylcysteine 10% 2 ML INHSOL IH SCH ×3 (03:46→16:07)
[2017-10-05] MEDS: Ipratropium/Albuterol Neb 3 ML IH SCH ×4 (03:46→22:42)
[2017-10-05 06:10] LABS: Basophils % 0.2 %; Hematocrit 44.8 % (35.3-44.9); Hemoglobin 13.8 g/dL (11.5-15.4); Immature Granulocytes % 0.9 % (0-4); Lymphocytes # 0.8 K/mcL (0.6-4.6); Lymphocytes % 7.9 %; Mean Corpuscular HGB Conc 30.8 g/dL (31.6-35.5); Mean Corpuscular Hemoglobin 27.4 pg (28.0-33.3); Mean Corpuscular Volume 88.9 fL (83.0-100.0); Mean Platelet Volume 11.5 fL (9.4-12.4); Monocytes # 0.9 K/mcL (0.0-1.3); Monocytes % 8.5 %; Neutrophils # 8.6 K/mcL (1.6-8.9); Platelet Count 202 K/mcL (140-400); Red Blood Count 5.04 M/mcL (3.82-4.97); Red Cell Distribution Width 14.8 % (11.5-14.5); Segmented Neutrophils % 82.5 %
[2017-10-05 06:19] LABS: BUN/Creatinine Ratio 36 (6-26); Blood Urea Nitrogen 25 mg/dL (8-23); Calcium 9.2 mg/dL (8.6-10.3); Carbon Dioxide 33 mEq/L (23-29); Chloride 100 mEq/L (98-107); Glucose 170 mg/dL (70-105); Osmolality,Calculated 296 (280-300); Sodium 139 mEq/L (136-145); eGFR For Non-African Americans > 60 (> 60)
[2017-10-05] MEDS: *HR* Enoxaparin 40 MG/0.4 ML SYRINGE SQ SCH (06:38)
[2017-10-05] MEDS: MethylPREDNISolone 40 MG/ML VIAL IVP SCH ×2 (06:38→16:51)
[2017-10-05] MEDS: Insulin LISPRO 300 UNITS/3 ML VIAL SQ SCH ×4 (08:20→20:53)
[2017-10-05] MEDS: Loratadine 10 MG TABLET PO SCH (08:41)
[2017-10-05] MEDS: Budesonide/Formoterol 160/4.5 MDI IH SCH ×2 (10:05→22:42)
--- NOTE | 2017-10-05 14:33 | Internal Med Progress Note ---
Hospitalist Progress Note - Encounter Date of Encounter: 10/05/17 Time of Encounter: 14:31 - Subjective Interval History: Still has shortness of breath especially on ambulation. Patient is on 2 L oxygen by nasal cannula. Did not require BiPAP last to 3 days. Patient denies fever, chills, nausea, vomiting, headache, dizziness, chest pain , abdominal pain, urinary or bowel complaint. - Exam Vitals: Temp Pulse Resp BP Pulse Ox 98.2 F 72 20 174/94 92 10/05/17 12:04 10/05/17 12:04 10/05/17 12:10/05/17 12:04 10/05/17 12:04 Exam: General appearance: No acute distress, A&O X 3, family at bedside, oxygen by nasal cannula. Family at bedside Head exam: Atraumatic Eye exam: EOMI, PERRLA ENT exam: Moist oral mucosa Neck nontender, supple Respiratory exam: Diminished breath sounds bilaterally with few rales bilaterally Cardiovascular exam: Regular rate and rhythm, no systolic murmur Abdominal exam: Soft, nontender, nondistended, positive bowel sounds Extremities exam: No calf tenderness, no pedal edema Present: Skin-no rash, warm, dry, intact Neurological exam: Alert, awake, oriented 3, CN II- intact, no focal deficits. No facial droop. Normal speech. - Assessment and Plan (1) Shortness of breath Current Visit: Yes Status: Acute Assessment and Plan: Multifactorial. High possibility of COPD exacerbation. Raised d-dimer therefore CT PE ordered with no acute clot in main pulmonary vessel but cannot rule out obscured PE, a small lung nodule therefore I consulted neurology manager and he felt that is more like due to COPD.. BNP normal. Patient declined for echocardiogram. There could be VALDEZ component and advised to get sleep study done on OPD basis. plate worker on board working on discharge process (2) Acute exacerbation of chronic obstructive pulmonary disease (COPD) Current Visit: Yes Status: Acute Assessment and Plan: History of COPD but has been well controlled on Symbicort breathing treatment. Last admission in the hospital in 2016. Patient does not see pulmonologists. She is not on any home oxygen. paraInfluenzae positive on respiratory panel. Respiratory isolation. Better air entry. Weaning down oxygen via nasal cannula. Patient need home oxygen evaluation at the time of discharge. Continue steroid 40 mg IV twice a day. Continue DuoNeb, chest physiotherapy, incentive spirometry, Symbicort increased dose. Azithromycin is started. Pulmonologists on board. Is patient has new rales bilaterally therefore will repeat chest x-ray to rule out any pleural effusion or pneumonia etc. plan for discharge possibly tomorrow on high-dose steroid tapering for 2 weeks (3) Hypertension Current Visit: Yes Status: Acute Assessment and Plan: Blood pressure is still running high therefore started low dose lisinopril 10 mg daily. Continue home medications atenolol. Close monitoring (4) Morbid obesity Current Visit: Yes Status: Acute Assessment and Plan: Low-calorie diet and exercise. Lifestyle modification. Patient needs to get established with PCP/weight loss clinic (5) DVT prophylaxis Current Visit: Yes Status: Acute Assessment and Plan: SCDs and lovenox 40 mg SQ QD. - Time Spent with Patient Total time spent is greater than 50% in coordination of care (as documented) at patient's floor/unit and/or counseling patient: 25 - 35 minutes Plan of Care Discussed with: patient Internal Medicine: Result - Labs CBC & Chem 7: 10/05/17 05:28 10/05/17 05:28 Labs: Short CBC 10/05/17 Range/Units 05:28 WBC 10.4 (4.3-11.1) K/mcL Hgb 13.8 (11.5-15.4) g/dL Hct 44.8 (35.3-44.9) % Plt Count 202 (140-400) K/mcL Neutrophils # 8.6 (1.6-8.9) K/mcL BMP 10/05/17 05:28 Sodium 139 Potassium 4.0 Chloride 100 Carbon Dioxide 33 H BUN 25 H Creatinine 0.69 Glucose 170 H Calcium 9.2 - ABG Interpretation ABG results: PT/INR, D-dimer D-Dimer 531 ng/mLFEU (0-500) H 09/30/17 19:59 - VTE Documentation of Mechanical Device: Intermittent pneumatic compression device Consult Discharge Plan - Plan Referrals: NONE,PCP [Primary Care Provider] - Prescriptions: Dextromethorphan/Benzocaine [Cepacol Sorethroat-Cough Uma] 1 each PO Q1-4H PRN 7 Days #1 lozenge PRN Reason: Cough (3) Hypertension Qualifiers: Hypertension type: essential hypertension Qualified Code(s): I10 - Essential (primary) hypertension
[2017-10-05] MEDS: Azithromycin 250 MG TABLET PO SCH (16:52)
[2017-10-05] MEDS: Acetaminophen 325 MG TABLET PO PRN (20:51)
[2017-10-06] MEDS: Acetylcysteine 10% 2 ML INHSOL IH SCH ×5 (02:59→22:17)
[2017-10-06] MEDS: Ipratropium/Albuterol Neb 3 ML IH SCH ×4 (03:46→22:16)
[2017-10-06] MEDS: MethylPREDNISolone 40 MG/ML VIAL IVP SCH (05:30)
[2017-10-06] MEDS: *HR* Enoxaparin 40 MG/0.4 ML SYRINGE SQ SCH (05:30)
[2017-10-06] MEDS: Insulin LISPRO 300 UNITS/3 ML VIAL SQ SCH ×4 (09:38→22:55)
[2017-10-06] MEDS: Loratadine 10 MG TABLET PO SCH (10:00)
[2017-10-06] MEDS: Budesonide/Formoterol 160/4.5 MDI IH SCH ×2 (10:43→22:17)
[2017-10-06] MEDS: predniSONE 20 MG TABLET PO SCH (12:43)
--- NOTE | 2017-10-06 16:41 | Discharge Summary ---
- NOTES TO OUTPATIENT PROVIDER Notes to Outpatient Provider: Follow with PCP in 3-5 days-patient need to get established with PCP-information was provided by nurse. Needs to schedule outpatient sleep study with marine electrician or PCP. Taper down steroids over 2 weeks. Blood glucose monitoring and further management as per PCP. Continue home oxygen-reevaluation by PCP. Get established with weight loss clinic Orders not resulted at time of discharge: Pending orders 10/01/17 10:10 Bedside Spirometry Evaluation [EVAL] Routine Date of Encounter: 10/06/17 Time of Encounter: 16:38 - Discharge Diagnosis (1) Acute exacerbation of chronic obstructive pulmonary disease (COPD) Priority: Primary Status: Acute Assessment and Plan: Improving that is still get out of breath on ambulation. Will discharge patient on oral prednisone with tapering over 2 weeks, 2.5 L home oxygen as qualified on 6 minute walk, complete the Zithromax course. Continue DuoNeb as patient has at home. Keep appointment with PCP and also marine electrician. History of COPD but has been well controlled on Symbicort breathing treatment. Last admission in the hospital in 2016. Patient does not see pulmonologists. She is not on any home oxygen. (2) Shortness of breath Priority: Primary Status: Acute Assessment and Plan: Multifactorial. High possibility of COPD exacerbation. Raised d-dimer therefore CT PE ordered with no acute clot in main pulmonary vessel but cannot rule out obscured PE, a small lung nodule therefore I consulted marine electrician and he felt that is more like due to COPD.. BNP normal. Patient declined for echocardiogram-advice to get on OPD basis after discussing with PCP There could be VALDEZ component and advised to get sleep study done on OPD basis. site worker on board working on discharge process as patient does not have insurance and has financial problems (3) Hypertension Priority: Primary Status: Acute Assessment and Plan: Blood pressure was running high now better controlled on lisinopril 20 mg daily along with continuation of home dose atenolol. Monitor blood pressure and further adjustment of dosages per PCP Qualifiers: Hypertension type: essential hypertension Qualified Code(s): I10 - Essential (primary) hypertension (4) Morbid obesity Priority: Secondary Status: Acute Assessment and Plan: Low-calorie diet and exercise. Lifestyle modification. Patient needs to get established with PCP/weight loss clinic (5) Prediabetes Priority: Primary Status: Acute Assessment and Plan: Hemoglobin A1c 6.3. No history of diabetes mellitus. Metabolic syndrome. Metformin 500 mg by mouth twice a day started after discussing side effect. I also offered sliding scale insulin for the coverages especially while on his steroid as it make high blood glucose level but patient declined. Diabetes education and diabetes supply was given and advised to check blood glucose level III times in a day before meal. Further management as per PCP. Diabetic diet Hospital course: Ms. Khan is a 62 year old female patient got admitted for shortness of breath due to COPD exacerbation. IV steroid, DuoNeb, spirometry, empiric antibiotic was started. [employer]isher was consulted who agreed with management of plan and advice to follow outpatient basis and recommended outpatient sleep study. Home oxygen evaluation was done and qualified for oxygen. Please see details in diagnosis section of the discharge summary. Patient is clinically and hemodynamically stable, ambulating to bathroom, tolerating oral diet at the time of discharge. site worker was consulted for the discharge plan. Discharge discussed with: patient, family - Time Spent with Patient Total time spent providing and/or coordinating discharge services: - Discharge Medications Prescriptions: Dextromethorphan/Benzocaine [Cepacol Sorethroat-Cough Uma] 1 each PO Q1-4H PRN 7 Days #1 lozenge PRN Reason: Cough Home Medications: Albuterol Neb [Proventil Neb] 2.5 mg IH DAILY PRN 09/30/17 [History] Albuterol Sulfate [Ventolin Hfa] 1 puff IH DAILY PRN 09/30/17 [History] Atenolol 100 mg PO DAILY 09/30/17 [History] Montelukast [Singulair] 10 mg PO DAILY 09/30/17 [History] Symbicort 2 puff IH BID 09/30/17 [History] Dextromethorphan/Benzocaine [Cepacol Sorethroat-Cough Uma] 1 each PO Q1-4H PRN 7 Days #1 lozenge 10/01/17 [Rx] Allergies/Adverse Reactions: 3 Allergy/AdvReac Type Severity Reaction Status Date / Time No Known Allergies Allergy Verified 09/30/17 20:07 Date of admission: 10/01/17 00:27 Primary care physician: PCP NONE Consults: 10/02/17 11:27 Consult to Pulmonology [CONS] Routine Consulting Provider: [facility] Reason for Consult: severe SOB, ? PE Call Completed: Yes - Constitutional Vitals: Temp Pulse Resp BP Pulse Ox 98.5 F 66 22 154/75 93 10/06/17 16:05 10/06/17 16:05 10/06/17 16:06 10/06/17 16:05 10/06/17 16:06 General appearance: Present: cooperative, A&O X 3, morbidly obese, pleasant Exam: General appearance: No acute distress, A&O X 3 Head exam: Atraumatic Eye exam: EOMI, PERRLA ENT exam: Moist oral mucosa Neck nontender, supple Respiratory exam: Diminished breath sounds bilaterally but better air entry now since admission Cardiovascular exam: Regular rate and rhythm, no systolic murmur Abdominal exam: Soft, nontender, nondistended, positive bowel sounds Extremities exam: No calf tenderness, no pedal edema Present: Neurological exam: Alert, awake, oriented 3, CN II-XII intact, no focal deficits. No facial droop. Normal speech. Normal gait. - Patient Status Disposition: Home, Self-Care Condition: Fair Overall status at discharge: patient is progressing back to baseline - Discharge Instructions Follow Up With: NONE,PCP [Primary Care Provider] - Forms: ED Satisfaction Letter - VTE Documentation of Mechanical Device: Intermittent pneumatic compression device
[2017-10-06] MEDS ORDERED: Azithromycin 250 MG TABLET PO SCH (17:00)
[2017-10-06] MEDS: *HR* Metformin 500 MG TABLET PO SCH (17:53)
[2017-10-07] MEDS: Acetylcysteine 10% 2 ML INHSOL IH SCH ×2 (03:50→10:14)
[2017-10-07] MEDS: Ipratropium/Albuterol Neb 3 ML IH SCH ×2 (03:51→10:14)
[2017-10-07] MEDS: *HR* Enoxaparin 40 MG/0.4 ML SYRINGE SQ SCH (06:27)
[2017-10-07] MEDS: Acetaminophen 325 MG TABLET PO PRN (06:30)
[2017-10-07 07:31] VITALS: BP 148/76
[2017-10-07] MEDS: Insulin LISPRO 300 UNITS/3 ML VIAL SQ SCH (07:32)
[2017-10-07] MEDS: *HR* Metformin 500 MG TABLET PO SCH (08:29)
[2017-10-07] MEDS: predniSONE 20 MG TABLET PO SCH (08:29)
[2017-10-07] MEDS: Loratadine 10 MG TABLET PO SCH (08:30)
[2017-10-07] MEDS: Budesonide/Formoterol 160/4.5 MDI IH SCH (10:14)
--- NOTE | 2017-10-07 17:27 | Event Note ---
Date of Encounter: 10/07/17 Time of Encounter: 11:25 Patient was discharged yesterday but had to cancel as home oxygen was not arranged. Evaluated patient today who appears comfortable with better air entry in the lungs. 6 minute walk done and qualified for 2.5 L home oxygen. Better blood pressure control. Patient will be going home today after getting home oxygen arranged.
== END 2017-10-07 12:09 | disposition home or self-care (01) | DRG 190 ==
LOC: 2ANU 19:55 → EMEROO 19:55 → 2ANU 22:51
PROVIDERS: ADMIT Family Medicine; ATTEND Family Medicine